=== PATIENT | female | born 1985 | race Caucasian/White ===

== ENCOUNTER 2018-11-15 16:50 | Emergency (ER) | payer SELFPAY ==
[2018-11-15 16:57] VITALS: BP 104/65
--- NOTE | 2018-11-15 17:05 | EDPHY ---
H & P Stated Complaint: Pt "leapt" at [employer] [place], felt tear proximal hamstring. Good CMS,noLOC Time Seen by Provider: 11/15/18 17:03 HPI/ROS: HPI: This is a 33-year-old female who presents with Chief Complaint: [facility] [place], felt [facility] proximal ham[facility]. Good CMS,noLOC Location: Right posterior thigh Quality: Injury Duration: Prior to arrival Signs and Symptoms: No bleeding, no radiation, no numbness, no weakness, no tingling, no incontinence, + decreased range of motion, no swelling, + pain, no fever, + increased pain with weight-bearing Timing: Acute Severity: 03/05 Context: Patient presents accompanied by her boyfriend with [facility] [place] [facility] to [facility]. Patient reports that she was jumping from [employer] to [employer] on the rubber portion of the mats. She reports that as she was jumping up she felt a pulling sensation in her right posterior thigh and associated constant, moderate, nonradiating pain. She reports that pain is increased with weight-bearing. Denies radiation, weakness , change in bowel or bladder habits, deformity, bruising, skin color changes. Modifying Factors: None Comment: ROS: A comprehensive 10 system review of systems is otherwise negative aside from elements mentioned in the history of present illness. MEDICAL/SURGICAL/SOCIAL HISTORY: Medical history: Generally healthy. Does not take any regular medications. Surgical history: Denies Social history: Never smoked. CONSTITUTIONAL: Moderate distress, adult white female, nontoxic appearing, awake and alert HEENT: Atraumatic and normocephalic. NECK: supple, no midline tenderness Cardiovascular: Normal S1/S2, regular rate, regular rhythm, without murmur rub or gallop. PULMONARY/CHEST: Symmetrical and nontender. no crepitus. Clear to auscultation bilaterally. Good air movement. No accessory muscle usage. ABDOMEN: Soft, nondistended, nontender, no ecchymosis. PELVIC: no pain with rocking; bilateral hips flexion 125 degrees, extension 30 degrees, with no pain internal rotation and no pain external rotation. BACK: No midline tenderness, no paraspinous spasm, deep tendon reflexes 2/2, no pain with straight leg raise, No foot drop. Achilles reflexes are equal bilaterally. Able to walk on heels and toes without difficulty. EXTREMITIES: 2/2 pulses, strength 5/5, right HIP: Flexion to 125, extension to 115, hyper extension to 15, abduction to 45. Mild Pain with internal rotation and external rotation. No tenderness over greater trochanter. No tenderness at the posterior portion of the hamstring insertion site. No obvious Robbins deformity. Right KNEE: no effusion, no medial and lateral joint line tenderness, full extension to 180, flexion to 120. No pain with varus and valgus exam. No pain with anterior drawer or posterior drawer test. Extensor mechanism intact. DIP/PIP/MCP flexion/extension intact with good light touch sensation. no deformities, no clubbing, no cyanosis or edema. NEUROLOGICAL: no focal neuro deficits. GCS 15. Light touch sensation intact. SKIN: Warm and dry, no erythema. no rash. Good capillary refill. Source: Patient Exam Limitations: No limitations - Personal History Current Tetanus/Diphtheria Vaccine: Yes - Medical/Surgical History Hx Asthma: No Hx Chronic Respiratory Disease: No Hx Diabetes: No Hx Cardiac Disease: No Hx Renal Disease: No Hx Cirrhosis: No Hx Alcoholism: No Hx HIV/AIDS: No Hx Splenectomy or Spleen Trauma: No Other PMH: none - Social History Smoking Status: Never smoked Constitutional: Initial Vital Signs Temperature (C) 36.8 C 11/15/18 16:54 Heart Rate 95 11/15/18 16:54 Respiratory Rate 18 11/15/18 16:54 Blood Pressure 104/65 11/15/18 16:54 O2 Sat (%) 98 11/15/18 16:54 O2 Delivery Mode Room Air Allergies/Adverse Reactions: No Known Allergies Allergy (Unverified 11/15/18 16:54) Medical Decision Making Procedures: Procedure: Splint placement. Crutches were given by Emergency Room lighting engineering technician. After application of the splint I returned and re-examined the patient. The splint was adequately immobilizing the joint and distal to the splint the patient's circulation and sensation was intact. ED Course/Re-evaluation: Vital signs reviewed and stable upon arrival. Physical exam is consistent with right hamstring strain Patient has good range of motion but pain with ranges of motion consistent with strain and not complete rupture Given crutches, Percocet in the ER, orthopedic referral X-ray images are of no benefit as no trauma or risk of fracture. Patient understands she can get an MRI outpatient and there are no indications for emergent MRI in the emergency room No signs of neurovascular compromise/tenting of skin/compartment syndrome/ extremities and joints examined above and below area of concern and are neurovascularly intact. This patient was seen under the supervision of my secondary supervising physician. I evaluated care for this patient independently. Differential Diagnosis: Differential diagnosis includes but is not limited to gluteus rosalinda strain, hamstring strain, ID band strain, bursitis, tendon rupture. Departure - Departure Disposition: Home, Routine, Self-Care Clinical Impression: Strain of right hamstring muscle Qualifiers: Encounter type: initial encounter Qualified Code(s): S76.311A - Strain of muscle, fascia and tendon of the posterior muscle group at thigh level, right thigh, initial encounter Condition: Good Instructions: Hamstring Injury (ED), Crutch Instructions (ED) Additional Instructions: Rest the right extremity until pain free. Use crutches to aid ambulation. Start with toe-touch weight-bearing status. Take Tylenol 650 mg every 4 hours and/or Ibuprofen 600 mg every 8 hours with food as needed for pain. Apply ice for 30 minutes at a time; 2-3 times per day for the next 1-2 days. Follow up with Orthopedics in 7-10 days if symptoms persist at which time they will evaluate and recommend with you if conservative management versus MRI is indicated. Referrals: Kodak Maria MD [Medical Doctor] - As per Instructions
[2018-11-15] MEDS ORDERED: OXYCODONE/APAP 5/325 TAB PO ONE (17:16)
== END 2018-11-15 17:33 | disposition home or self-care (01) ==
DX: S76.311A Strain of muscle, fascia and tendon of the posterior muscle group at thigh level, right thigh, initial encounter (principal); W09.8XXA Fall on or from other playground equipment, initial encounter; Y93.44 Activity, trampolining; Y92.838 Other recreation area as the place of occurrence of the external cause